=== PATIENT | male | born 1955 | race Caucasian/White ===

== ENCOUNTER 2017-05-03 21:27 | Observation (INO) | payer OTHER ==
--- NOTE | ~2017-05-03 | ST ---
Unit #: [id number] #: [id number] Patient: MARGARITA SEN [id number] [address] [address] [id number] I MR#: [id number] NAME: MARGARITA SEN. : 1955 SEX: M STUDY DATE/TIME: 05/04/2017 UNIT: [facility] ROOM: 573 STUDY DESCRIPTION: Lexiscan stress test Attending Physician: Cornell Mancia M.D. Primary Care Physician: No Primary Care Physician CARDIOLOGY REPORT PROCEDURES PERFORMED EKG portion of Lexiscan Cardiolite. REASON FOR PROCEDURE Chest pain. PROCEDURE Baseline EKG shows sinus rhythm, no significant ST changes. Patient received 0.4 mg Lexiscan per protocol followed by Cardiolite. He was asymptomatic. There were no changes to the ST segment to suggest ischemia. No ST depression, sustained arrhythmia or ectopy was noted. Test was stopped due to protocol completion. IMPRESSION 1. Negative EKG portion of Lexiscan Cardiolite. 2. No sustained arrhythmias. 3. Please correlate with Cardiolite imaging. Dictated by... Janae Martinez APRN for SDeidre Leiva/lexi TD: 05/04/2017 13:42 JOB #: [id number] CARDIOLOGY REPORT Page 1 of 1 X CARDIOLOGY REPORT
--- NOTE | ~2017-05-03 | HP ---
Unit #: [id number] #: [id number] Patient: MARGARITA SEN [id number] [address] [facility]. [place], [place] [address] [id number] I MR#: [id number] NAME: MARGARITA SEN. ROOM: 573 Age: 61 Sex: M Admission Date: 05/04/2017 : 1955 Attending Physician: Cornell Mancia M.D. Primary Care Physician: No Primary Care Physician HISTORY AND PHYSICAL REASON FOR ADMISSION Chest pain. HISTORY OF PRESENT ILLNESS The patient is a 61-year-old white male who follows with Dr. Green in the office for history of sick sinus syndrome status post pacemaker placement in 2007 with a battery exchange in 2015, A fib with an ablation in 2014, hypertension, asthma, COPD, former smoker (quit in 1995), cardiac cath 6-7 years ago that showed mild disease per patient, and a history of alcohol abuse but quit in 1995, also. The patient came to the [facility] ED on 05/03/17 at roughly 9 p.m. with complaints of chest pain. The patient states that he has had intermittent chest pain since yesterday morning where he describes it as a pressure and pain sensation to the left chest that radiates at times up to the left shoulder area. He also reports associated palpitations, lightheadedness, weakness and shortness of breath, but he denies any nausea, vomiting or syncope. The patient states that it is nonexertional, as he can get up and move around and it does not make the chest pain any worse, nor does it improve it. The patient is still having some mild chest pain that is reproducible and worsens with palpation currently. Cardiac cath, according to the patient, 6-7 years ago where he had some mild disease required no stents. The patient states that he had a stress test last year that was reportedly normal. Details are unavailable. PAST MEDICAL HISTORY 1. Sick sinus syndrome status post pacemaker in 2007 with battery exchange in 2015. 2. A fib status post ablation in 2014. 3. Hypertension. 4. Asthma. 5. COPD. 6. Former smoker, quit in 1995. 7. History of alcohol abuse, quit in 1995. 8. Cardiac cath 6-7 years ago that showed mild disease per the patient. 9. Stress test last year that was reportedly normal. SURGICAL HISTORY 1. Pacemaker. 2. Ablation. 3. Bilateral foot surgery. 4. Three hernia surgeries, which included abdominal hernia and inguinal. Unit #: [id number] #: [id number] Patient: MARGARITA SEN 5. Cholecystectomy. ALLERGIES Penicillins. HOME MEDICATIONS 1. Metoprolol 25 p.o. b.i.d. 2. Magnesium 400 daily. 3. Advair inhaler. 4. Protonix 40 p.o. daily. 5. Bentyl 20 mg p.o. q.8 hours. 6. Diclofenac sodium 75 mg p.o. b.i.d. 7. Breo Ellipta daily. 8. Singulair 10 mg p.o. daily. 9. Nitro sublingual as needed for chest pain. REVIEW OF SYSTEMS See HPI. PHYSICAL EXAMINATION GENERAL: This is a 61-year-old white male who is alert and oriented x3 in no apparent distress. VITAL SIGNS: Blood pressure 102/64, temperature 97.4, pulse 60, respirations 15. HEENT: Pupils are equal, round and reactive. Oral mucosa is moist. NECK: No JVD. No thyromegaly. No lymphadenopathy. No carotid bruits. HEART: S1, S2. No S3, S4. No clicks. No rubs. No murmurs. RESPIRATORY: Lungs are clear. CHEST: Chest wall tenderness noted with palpation to the left side of the chest. ABDOMEN: Soft. Bowel sounds positive. Nontender, nondistended. EXTREMITIES: No swelling. NEUROLOGIC: No neuro deficits noted. DIAGNOSTIC TESTING LABORATORY STUDIES: Troponin less than 0.05, less than 0.05 and less than 0.03. White count 6.6, hemoglobin 14.9, hematocrit 43.6, platelets 225. INR 1.1. Sodium 142, potassium 4.1, chloride 111, CO2 23, glucose 109, BUN 15, creatinine 0.7, AST 32, ALT 31, alkaline phosphatase 55. BNP 67. D-dimer 497. IMAGING: Chest x-ray shows no acute findings. IMPRESSION 1. Atypical chest pain. 2. Mild coronary artery disease per patient; records unavailable. 3. Sick sinus syndrome status post pacemaker in 2007. 4. Hypertension. 5. Asthma. 6. COPD. 7. A fib with ablation in 2014. 8. Former smoker and alcohol abuser. Quit in 1995. PLAN Will obtain treadmill Cardiolite stress test to rule out ischemia. Will monitor telemetry for any cardiac arrhythmias that could explain the palpitations that he has had. Currently on EKG and telemetry, the patient is in normal sinus rhythm. Will have Dr. Reece to follow and review with Unit #: [id number] #: [id number] Patient: MARGARITA SEN any further recommendations. Could consider having pacemaker checked for any arrhythmias. If the patient discharged today, the patient can follow up with his primary osteopathic resident for this. Dictated by ANGIE Durham TD: 05/04/2017 11:12 JOB #: [id number] HISTORY AND PHYSICAL Page 1 of 1 X X HISTORY AND PHYSICAL
--- NOTE | ~2017-05-03 | EKG ---
PATIENT: MARGARITA SEN UNIT #: [id number] Ventricular Rate: 63 BPM Atrial Rate: 63 BPM P-R Interval: 192 ms QRS Duration: 78 ms Q-T Interval: 390 ms QTC Calculation(Bezet): 399 ms P Henderson: 47 degrees Calculated R Henderson: 15 degrees Calculated T Henderson: 28 degrees Diagnosis Line: Normal sinus rhythm Diagnosis Line: Normal ECG Diagnosis Line: When compared with ECG of 03-JUN-2015 03:26, Diagnosis Line: Sinus rhythm has replaced Electronic atrial Diagnosis Line: pacemaker Diagnosis Line: Confirmed by VJ EATON MD ([id number]) on Diagnosis Line: 05/04/2017 10:44:07 PM INTERPRETING MD: MAIRA
--- NOTE | ~2017-05-03 | TH ---
Unit #: [id number] #: [id number] Patient: MARGARITA SEN [id number] [facility]. [address] [place], [place] [address] [id number] I MR#: [id number] NAME: MARGARITA SEN. : 1955 SEX: M STUDY DATE/TIME: 05/05/2017 UNIT: [facility] ROOM: 573 STUDY DESCRIPTION: Attending Physician: Cornell Mancia M.D. Primary Care Physician: No Primary Care Physician CARDIOLOGY REPORT EXAM Lexiscan Cardiolite stress test, nuclear portion. PROCEDURE Using technetium 99m labeled Cardiolite, rest and stress SPECT images were obtained. Multiple SPECT images were obtained in various views including horizontal and vertical long axis and short axis views of the left ventricle. Images were obtained by gated SPECT method. The patient was administered 9.04 mCi of Cardiolite at rest. Patient was administered 29.1 mCi of Cardiolite after Lexiscan infusion was completed. On the stress images, there is normal perfusion noted. The rest images show normal perfusion. Comparing rest and stress images, there is no stress-induced ischemia noted. The left ventricular ejection fraction is calculated to be 62%. There is no focal wall motion abnormality seen. CONCLUSION 1. No stress-induced ischemia noted. 2. The left ventricular ejection fraction is calculated to be 62%. 3. There is no focal wall motion abnormality seen. 4. Normal Lexiscan Cardiolite stress test. Dictated by... Deidre Esquivel TD: 05/05/2017 10:11 JOB #: [id number] CC: Lucas Reece M.D. CARDIOLOGY REPORT Page 1 of 1 X Swetha Torres MD <ELECTRONICALLY SIGNED> 05/31/17 1429 CARDIOLOGY REPORT
--- NOTE | ~2017-05-03 | CR72 ---
[facility] A Service of [facility] & [facility] / [facility] RADIOLOGY TEXT RESULTS PATIENT: MARGARITA SEN LOCATION: [facility] 573-01 : 57 UNIT #: [id number] AGE: [address]: Dustin Mancia MD SEX: M ORDER DR: [id number] [facility] [address] [facility] [place] [facility]. [place], [place] [address] [id number] MR#: [id number] Acc #: [id number] NAME: MARGARITA SEN : 1955 SEX: M STUDY DATE/TIME: 05/03/2017 22:15 UNIT: [facility] ROOM: STUDY DESCRIPTION: CR Chest Single View Portable Attending Physician: Hali Perez M.D. Ordering Physician: Hali Perez M.D. Primary Care Physician: Primary Care Physician No MEDICAL IMAGING REPORT This report is preliminary unless electronic signature is present EXAM Portable chest, 05/03/2017 HISTORY 61-year-old male with chest pain and shortness of air beginning today. COMPARISON Chest 06/03/2015 FINDINGS Frontal chest demonstrates clear lungs. No pleural effusion or pneumothorax. Heart size and mediastinum within normal limits. Pulmonary vasculature unremarkable. Left-sided pacing complex. IMPRESSION No acute cardiopulmonary findings. Dictated by... Dustin Combs M.D. THIS IS AN ELECTRONICALLY VERIFIED REPORT Dustin Combs M.D. at 05/04/2017 6:16 PM TAYLOR/daniel TD: 05/04/2017 00:36 JOB #: [id number] MEDICAL IMAGING REPORT Page 1 of 1 COPY
--- NOTE | ~2017-05-03 | EKG ---
PATIENT: MARGARITA SEN UNIT #: [id number] Ventricular Rate: 60 BPM Atrial Rate: 60 BPM P-R Interval: 232 ms QRS Duration: 80 ms Q-T Interval: 416 ms QTC Calculation(Bezet): 416 ms Calculated R [place]: 9 degrees Calculated T [place]: 14 degrees Diagnosis Line: Atrial-paced rhythm with prolonged AV conduction Diagnosis Line: Abnormal ECG Diagnosis Line: When compared with ECG of 03-MAY-2017 21:31, Diagnosis Line: (unconfirmed) Diagnosis Line: Electronic atrial pacemaker has replaced Sinus Diagnosis Line: rhythm Diagnosis Line: Confirmed by VJ EATON MD ([id number]) on Diagnosis Line: 05/04/2017 10:48:34 PM INTERPRETING MD: MAIRA
[~2017-05-03 21:27] MED LIST: ADVAIR 250-501 EACH IH; ADVAIR 500-501 EACH IH; COMBIVENT14.7 GM INH; IBUPROFEN800 MG PO; LORTAB 5/500 TA1 TA2 PO; PROTONIX PO; PROVENTIL17 GM; PYRIDIUM100 MG PO; RHYTHMOL PO; RYTHMOL150 MG PO; RYTHMOL225 MG PO; SINGULAIR PO; TYLENOL #3 PO
[2017-05-03 22:20] LABS: POC - CKMB <1.0 ng/mL (0.0-7.9); POC - TROPONIN <0.05 ng/mL (<=0.05)
[2017-05-03 22:28] LABS: BASOPHIL# 0.1 X10e3 (0-0.3); BASOPHIL% 1.8 % (0-2.5); EOSINOPHIL# 0.3 X10e3 (0-0.7); EOSINOPHIL% 4.2 % (0.0-7.0); HEMATOCRIT 43.6 % (38.0-50.0); HEMOGLOBIN 14.9 gm/dL (13.0-16.0); LYMPHOCYTE# 1.6 X10e3 (1.0-3.5); LYMPHOCYTE% 23.8 % (17.0-45.0); MEAN CELL VOLUME 94.3 FL (83-96); MEAN CORPUSCULAR HEMOGLOBIN 32.3 PG (28-34); MEAN CORPUSCULAR HGB CONC 34.3 g/dL (30-36); MEAN PLATELET VOLUME 8.9 FL (6.5-11.5); MONOCYTE# 0.4 X10e3 (0-1.0); MONOCYTE% 6.4 % (3.0-12.0); NEUTROPHIL# 4.2 X10e3 (1.5-7.1); NEUTROPHIL% 63.8 % (40-75); PLATELET COUNT 225 X10e3 (140-420); RED BLOOD COUNT 4.62 X10e (3.90-5.60); RED CELL DISTRIBUTION WIDTH 12.5 % (11.0-15.5); WHITE BLOOD COUNT 6.6 X10e3 (4.0-10.5)
[2017-05-03 22:30] LABS: DIFF IND NO
[2017-05-03 22:43] LABS: INR 1.1; PARTIAL THROMBOPLASTIN TIME 23.3 SECONDS (23.5-31.3)
[2017-05-03 22:57] LABS: ALBUMIN SERUM 4.3 g/dL (3.5-5.0); BILIRUBIN, DIRECT 0.1 mg/dL (0.0-0.2); BILIRUBIN,INDIRECT 0.8 mg/dL (0.0-0.9); BILIRUBIN,TOTAL 0.9 mg/dL (0.2-2.0); BUN/CREATININE RATIO 21.42; CALCIUM SERUM 9.3 mg/dL (8.4-10.2); CREATININE SERUM 0.7 mg/dL (0.6-1.4); GLOM FILT RATE Estimated 102.6 mL/min (>60); POTASSIUM 4.1 mmol/L (3.5-5.1); PROTEIN TOTAL SERUM 7.1 g/dL (6.0-8.3)
[2017-05-03] MEDS ORDERED: METOPROLOL SUCC25 MG PO (23:06)
[2017-05-03] MEDS ORDERED: PANTOPRAZOLE SO40 MG PO (23:07)
[2017-05-03] MEDS ORDERED: ADVAIR 500-501 EACH INH (23:07)
[2017-05-03] MEDS ORDERED: MAGNESIUM500 MG PO (23:07)
[2017-05-03] MEDS ORDERED: DICYCLOMINE HCL20 MG PO (23:08)
[2017-05-03] MEDS ORDERED: VOLTAREN75 MG PO (23:09)
[2017-05-03] MEDS ORDERED: SINGULAIR PO (23:10)
[2017-05-03] MEDS ORDERED: NITROGLYGERIN0.4 MG SL (23:10)
[2017-05-03] MEDS ORDERED: BREO ELLIPTA 21 EACH INH (23:10)
[2017-05-04 00:16] LABS: POC - CKMB <1.0 ng/mL (0.0-7.9); POC - TROPONIN <0.05 ng/mL (<=0.05)
[2017-05-04 08:07] LABS: MB 1.7 ng/ml
[2017-05-04 16:47] LABS: %MB 2.2 % (0.0-4.0); MB 1.6 ng/ml
== END 2017-05-04 18:00 | disposition home or self-care (01) ==
LOC: CED 21:27 → CEDOF 05-04 00:30 → CED 05-04 00:41 → CEDOF 05-04 09:08 → C5C 05-04 09:08
PROVIDERS: Emergency Medicine
DX: R07.89 Other chest pain (principal); I25.10 Atherosclerotic heart disease of native coronary artery without angina pectoris; I49.5 Sick sinus syndrome; Z95.0 Presence of cardiac pacemaker; I10 Essential (primary) hypertension; J44.9 Chronic obstructive pulmonary disease, unspecified; Z87.891 Personal history of nicotine dependence; Z86.79 Personal history of other diseases of the circulatory system; Z87.898 Personal history of other specified conditions; Z88.0 Allergy status to penicillin
CPT/HCPCS: 36415; 71010; 78452; 80048; 80076; 82550; 82553; 83880; 84484; 85025; 85379; 85610; 85730; 93005; 93017; 96372; 96374; 96375; 96376; 99285; A9500; G0378; J1650; J1885; J2270; J2405; J2785